=== PATIENT | male | born 1975 | race Caucasian/White ===

== ENCOUNTER 2023-02-01 08:00 | Day surgery (SDC) | payer BC ==
[~2023-02-01 08:00] MED LIST: Midazolam 1 MG/ML 2 ML SDV ONE; Propofol 200 MG/20 ML SDV ONE; fentaNYL 50 MCG/ML SDV ONE
[2023-02-01] MEDS ORDERED: Lactated Ringers 1,000 ML IV SCH (08:30)
[2023-02-01] MEDS ORDERED: Propofol 200 MG/20 ML SDV ONE (09:06)
== END 2023-02-01 10:15 | disposition home or self-care (01) ==
LOC: JP.SDS 08:00
PROVIDERS: ATTEND Student in an Organized Health Care Education/Training Program
DX: Z12.11 Encounter for screening for malignant neoplasm of colon (principal); D12.3 Benign neoplasm of transverse colon; D12.5 Benign neoplasm of sigmoid colon; K57.30 Diverticulosis of large intestine without perforation or abscess without bleeding; K21.9 Gastro-esophageal reflux disease without esophagitis
CPT/HCPCS: 45380; 45385; 88305; J2250; J2704; J3010; J7120

== ENCOUNTER 2024-05-29 07:54 | Day surgery (SDC) | payer OTHER, BC ==
[2024-05-29] MEDS ORDERED: Propofol 200 MG/20 ML SDV ONE (08:12)
[2024-05-29] MEDS ORDERED: Glycopyrrolate 0.2 MG/ML 5 ML MDV ONE (08:12)
[2024-05-29] MEDS ORDERED: Rocuronium 50 MG/5 ML Vial ONE (08:12)
[2024-05-29] MEDS ORDERED: Ondansetron 4 MG/2 ML SDV ONE (08:12)
[2024-05-29] MEDS ORDERED: fentaNYL 250 MCG/5 ML SDV ONE ×2 (08:12→10:27)
[2024-05-29] MEDS ORDERED: Neostigmine Methylsulfate 10 MG/10 ML MDV ONE (08:12)
[2024-05-29] MEDS ORDERED: Succinylcholine 200 MG/10 ML MDV ONE (08:12)
[2024-05-29] MEDS ORDERED: Dexamethasone 4 MG/ML SDV ONE (08:12)
[2024-05-29 08:22] LABS: HEMATOCRIT 44.7 % (38.4-49.7); MEAN CORPUSCULAR HGB CONC 35.8 g/dL (31.6-35.5); MEAN CORPUSCULAR VOLUME 83.9 fL (81.4-99.0); RED BLOOD CELL COUNT 5.33 M/uL (4.14-5.76); WHITE BLOOD CELL COUNT,WBC 6.4 K/uL (3.2-11.0)
[2024-05-29] MEDS: Lactated Ringers 1,000 ML IV SCH (08:30)
[2024-05-29] MEDS: Nozin Nasal Sanitizer NASBOTH ONE (08:30)
[2024-05-29 08:37] LABS: ANION GAP 9.8 mmol/L (5.0-14.0); CALCIUM 9.3 mg/dL (8.5-10.1); CREATININE 1.3 mg/dL (0.8-1.3); EST CRCL DRUG DOSING (CG) 81.67 mL/min; POTASSIUM,K 3.7 mmol/L (3.6-5.2)
[2024-05-29] MEDS: ceFAZolin 2 GM in Premix Bag 1 BAG IV ONE (09:39)
[2024-05-29] MEDS ORDERED: Nozin Nasal Sanitizer NASBOTH ONE (10:00)
[2024-05-29] MEDS ORDERED: Lactated Ringers 1,000 ML IV SCH (10:00)
[2024-05-29] MEDS ORDERED: Ketorolac 30 MG/ML SDV ONE (10:27)
[2024-05-29] MEDS ORDERED: ceFAZolin 2 GM in Premix Bag 1 BAG IV ONE (10:30)
[2024-05-29] MEDS: Bupivacaine 0.5% 50 ML MDV ONE (10:54)
[2024-05-29] MEDS: Acetaminophen/oxyCODONE 325-5 MG Tab PO PRN ×2 (13:00→13:50)
== END 2024-05-29 14:32 | disposition home or self-care (01) ==
LOC: JP.SDS 07:54
PROVIDERS: ATTEND Specialist
DX: S83.211A Bucket-handle tear of medial meniscus, current injury, right knee, initial encounter (principal); I10 Essential (primary) hypertension; E66.9 Obesity, unspecified; Z79.899 Other long term (current) drug therapy; Z88.8 Allergy status to other drugs, medicaments and biological substances; Z91.041 Radiographic dye allergy status; Z91.013 Allergy to seafood; Z87.891 Personal history of nicotine dependence
CPT/HCPCS: 01400; 29882; 36415; 80048; 85027; 93005; 93010; A9270; C1713; J0330; J0665; J0690; J1100; J1596; J1885; J2405; J2704; J2710; J3010; J7120; J3490